=== PATIENT | male | born 1980 | race Caucasian/White ===

== ENCOUNTER 2019-09-22 19:39 | Emergency (ER) | payer SELFPAY ==
[~2019-09-22] VITALS: Ht 175.3 cm; Wt 77.3 kg
[2019-09-22 19:52] VITALS: Ht 175.3 cm; Wt 77.3 kg
[2019-09-22 20:32] LABS: BASOPHILS 0.1 % (0-2); EOSINOPHILS 0.3 % (0-7); HEMATOCRIT 42.8 % (42.0-54.0); HEMOGLOBIN 14.4 g/dL (13.5-17.5); IMMATURE GRANULOCYTES 0.6 % (0-5); LYMPHOCYTES 2.3 % (15-50); MCH 31.6 pg (26.0-34.0); MCHC 33.6 g/dL (31.0-37.0); MCV 94.1 fL (80.0-100.0); MEAN PLATELET VOLUME 10.3 fL (7.4-10.4); NEUTROPHILS 95.7 % (40-80); PLATELET COUNT 159 10x3/uL (130-400); RBC 4.55 10x6/uL (4.20-6.10); RDW 13.2 % (11.5-14.5); WBC 7.1 10x3/uL (4.8-10.8)
[2019-09-22 20:39] LABS: INR 1.1 (0.85-1.17); PROTIME 14.2 SECONDS (11.6-15.0)
[2019-09-22 20:45] VITALS: BP 109/68
[2019-09-22 20:56] LABS: CALC OSMOLALITY 279 mosm/kg (275-300); CALCIUM 9.6 mg/dL (8.5-10.1); CARBON DIOXIDE 21.5 mmol/L (21.0-32.0); CHLORIDE - SERUM 106 mmol/L (98-107); CREATININE - SERUM 1.4 mg/dL (0.6-1.3); GLUCOSE 88 mg/dL (74-106); POTASSIUM - SERUM 3.7 mmol/L (3.5-5.1); SODIUM 140 mmol/L (136-145); UREA NITROGEN 19 mg/dL (7-18); eGFR NON AFRICAN AMERICAN 60 mL/min (90-120)
[2019-09-22 21:28] LABS: ALBUMIN 3.5 g/dL (3.4-5.0); ALKALINE PHOSPHATASE 80 U/L (30-120); ALT (SGPT) 354 U/L (10-68); BILIRUBIN - TOTAL 0.74 mg/dL (0.2-1.3); CKMB 1.3 U/L (0.0-3.6); CREATINE KINASE 144 UL (21-232); PRO BNP 91 pg/mL (0-125); PROTEIN - SERUM 6.1 g/dL (6.4-8.2)
[2019-09-22] MEDS ORDERED: ZPAK PO (21:29)
[2019-09-22] MEDS ORDERED: STERAPRED 5MG 65 M1 PO (21:29)
[2019-09-22 21:30] LABS: FERRITIN 1569 ng/mL (3-244); TROPONIN-I < 0.017 ng/mL (0.000-0.060)
== END 2019-09-22 21:45 | disposition left against medical advice (07) ==
LOC: D.ER 19:39
PROVIDERS: Emergency Medicine
DX: U07.1 COVID-19 (principal); R50.9 Fever, unspecified; Z53.29 Procedure and treatment not carried out because of patient's decision for other reasons; R05 Cough